=== PATIENT | female | born 2005 | race Caucasian/White ===

== ENCOUNTER 2025-02-27 01:42 | Observation (INO) ==
[2025-02-27] MEDS: SODIUM CHLORIDE 0.9% 1,000 ML IV ONE (02:14)
--- NOTE | 2025-02-27 02:20 | Emergency Department Note ---
Impression & Plan Chest pain, Leukocytosis, Acute appendicitis, Nausea & vomiting, Myocarditis ED Provider Note HISTORY OF PRESENT ILLNESS: Patient is a 19-year-old female presenting with abdominal pain and chest pain. Patient reports that she has been having lower abdominal pain for the last 4 days. She reports that she went to urgent care 3 days ago and was given reflux medication. She states that she was instructed if her symptoms do not improve that she should present to the emergency department. Patient reports that this evening she was trying to eat a burger and became very nauseous and started vomiting. She reports she has had intermittent pain in her right lower abdomen over the last few days. She states that she has had poor oral intake over the last 3 days secondary to nausea and states that whenever she tries to eat or drink anything she vomits. Denies any measured fevers or chills at home. Denies any dysuria or hematuria. Denies any history of abdominal surgeries. She is on OCPs. She describes her chest pain as a burning sensation. Denies any associated shortness of breath. ROS: as above PHYSICAL EXAM: Constitutional: Patient appears in no acute distress. HENT: Head: Normocephalic and atraumatic. Eyes: EOMI, PERRL Mouth/Throat: Mucous membranes moist. Neck: Trachea midline. Neck supple. Cardiovascular: RRR, No murmurs, rubs or gallops. Intact distal pulses. Pulmonary/Chest: No respiratory distress. Breath sounds clear and equal bilaterally. No wheezes or rales. Abdominal: Abdomen soft, no rebound or guarding. RLQ TTP Musculoskeletal: No edema, tenderness or deformity noted. Skin: Warm and dry. No rash, erythema, pallor or cyanosis Psychiatric: Appropriate mood and affect for situation. Neurological: Alert and keenly responsive. CN II-XII grossly intact, moving all extremities equally and fully. MDM: - Vitals signs stable - History obtained via patient. History as above. - Chronic conditions affecting care: None - Differential diagnoses include, but are not limited to: Acute coronary syndrome; pulmonary embolism; dissection; tension pneumothorax; esophageal rupture; pneumonia; appendicitis; bowel obstruction - Order placed for continuous cardiac monitoring. At this time, monitor showed rate of 83 bpm with normal sinus rhythm, per my interpretation. - External medical records reviewed. - EKG image interpreted by myself showed normal sinus rhythm. Rate 81 bpm. QT 370. No acute ischemic changes. Noted to have an incomplete right bundle branch block. - Laboratory workup interpreted by myself showed leukocytosis (WBC 12.42) with neutrophil predominance; stable electrolytes; negative hCG; normal AST/ALT; normal lipase; elevated troponin (1298.1) - Patient was given 4 mg IV Zofran, 1 L normal saline and 1 g IV Tylenol on arrival to the ER. However, she is still complaining of chest pain and vomiting on reassessment. Given 20 mg IV Pepcid, 5 mg IV Compazine and 25 mg IV Benadryl. - Repeat troponin elevated and rising to 2086.8 - Viral respiratory panel negative. - CTA chest negative for PE - CT abdomen/pelvis with IV contrast showed a possible mild/early appendicitis noted as a small tubular blind-ending structure adjacent to the base of the cecum. Noted to have mild free fluid in the pelvis. - IV zosyn ordered - Discussed case with general surgeon on-call, Dr. Ko, at 5:19 AM. He states that surgery will follow along as a consult. - Given 324 mg aspirin. - Repeat EKG obtained at 5:21 AM was reviewed and interpreted by myself and showed normal sinus rhythm. Rate 65 bpm. QT 390. No acute ischemic changes. -Given patient's recent illness with nausea and vomiting over the last few days, do wonder if her troponin elevation and chest pain is a myocarditis versus pericarditis. - Discussion was had with case reviewer about patient's case and need for admission - Hospitalist consulted for admission - [facility]. I have personally spent 41 minutes of critical care time in the direct management of this patient. This includes bedside care, interpretation of diagnostic studies, and testing, discussion with consultants, patient, and family members, and other required patient management activities. This 41 minutes is in excess of all separately billable procedures. ASSESSMENT AND PLAN: Diagnosis: Chest pain; leukocytosis; acute appendicitis; nausea and vomiting; myocarditis Plan: admit Past Med/Surg History Problem List (Updated 02/27/25 @ 05:32 by Sonya Yusuf MD) Myocarditis (Acute) Nausea & vomiting (Acute) Acute appendicitis (Acute) Leukocytosis (Acute) Chest pain (Acute) Social History Smoking Status: Current every day smoker Tobacco Type: Cigarettes and E-cigarettes / Vaping Preferred Language: Japanese Feels Safe at Home: Yes Results & Data (ED) Vital Signs Vital Signs - 24 hr 02/27/25 01:44 02/27/25 01:52 02/27/25 02:15 Temperature 37.3 C Temperature Source Temporal Artery Scan Pulse Rate 99 H 80 Pulse Rate [Apical] Pulse Rhythm [Apical] Respiratory Rate 20 Respiratory Effort / Characteristics Non-Labored Spontaneous Respiratory Depth Normal Respiratory Pattern Blood Pressure 110/71 Blood Pressure [Right Arm] Blood Pressure Mean 84 Blood Pressure Mean [Right Arm] Blood Pressure Position [Right Arm] Pulse Oximetry 97 97 Oxygen Delivery Method Room Air Room Air Sepsis Recent Fever Within 48 Hours No Sepsis New/Unexplained Change in Mental Status N/A Sepsis Action Taken by Nursing No Action Required 02/27/25 03:12 02/27/25 04:00 02/27/25 04:53 Temperature 37.0 C Temperature Source Oral Pulse Rate Pulse Rate [Apical] 84 82 83 Pulse Rhythm [Apical] Regular Irregular Respiratory Rate 16 20 18 Respiratory Effort / Characteristics Non-Labored Spontaneous Non-Labored Spontaneous Non-Labored Spontaneous Respiratory Depth Normal Normal Normal Respiratory Pattern Regular Regular Regular Blood Pressure Blood Pressure [Right Arm] 122/85 114/94 137/74 Blood Pressure Mean Blood Pressure Mean [Right Arm] 97 100 95 Blood Pressure Position [Right Arm] Semi-fowlers Semi-fowlers Semi-fowlers Pulse Oximetry 97 98 98 Oxygen Delivery Method Room Air Room Air Room Air Sepsis Recent Fever Within 48 Hours Sepsis New/Unexplained Change in Mental Status Sepsis Action Taken by Nursing Laboratory Data 02/27/25 01:54 02/27/25 01:54 Lab Results 02/27/25 02/27/25 02/27/25 Range/Units 01:54 02:16 03:57 WBC 12.42 H (4.8-10.8) K/ul RBC 4.23 (4.20-5.40) M/uL Hgb 12.8 (12.0-16.0) g/dl Hct 37.1 (37.0-47.0) % MCV 87.7 (80.0-100.0) fL MCH 30.3 (25.0-34.0) pg MCHC 34.5 (32.0-36.0) g/dL RDW Std Deviation 40.0 (36.4-46.3) fL RDW Coeff of James 12.6 (11.5-14.5) % Plt Count 353 (130-400) K/uL MPV 10.3 (9.4-12.4) fL Immature Gran % (Auto) 0.2 % Neut % (Auto) 67.3 % Lymph % (Auto) 20.1 % [place] % (Auto) 11.4 % Eos % (Auto) 0.6 % Baso % (Auto) 0.4 % Neut # (Auto) 8.35 H (1.40-6.50) K/uL Lymph # (Auto) 2.50 (1.20-3.40) K/uL [place] # (Auto) 1.41 H (0.11-0.59) K/uL Eos # (Auto) 0.08 (0.00-0.50) K/uL Baso # (Auto) 0.05 (0.00-0.20) K/uL Immature Gran # (Auto) 0.03 (0.01-0.20) K/uL Sodium 136 (136-145) mmol/L Potassium 3.7 (3.5-5.1) mmol/L Chloride 100 (98-107) mmol/L Carbon Dioxide 26 (21-32) mmol/L Anion Gap 10 (3-11) BUN 6 (6-23) mg/dl Creatinine 0.69 (0.6-1.2) mg/dl Est Cr Clr Drug Dosing 107.9 ml/min eGFR 126.55 BUN/Creatinine Ratio 8.7 L (10-20) Glucose 97 (70-99(Fasting)) mg/dl Calcium 9.4 (8.6-10.3) mg/dl Total Bilirubin 0.3 (0.2-1.0) mg/dl AST 20 (13-39) U/L ALT 15 (7-52) U/L Alkaline Phosphatase 79 (34-104) U/L Troponin I High Sens 1298.1 H* 2086.8 H* D (0-14) pg/ml Total Protein 7.7 (6.0-8.3) gm/dl Albumin 4.0 (3.4-5.0) gm/dl Globulin 3.7 (2.5-4.0) gm/dl Albumin/Globulin Ratio 1.1 (0.9-2) Lipase 24 (11-82) U/L HCG, Qual Negative (Negative) Adenovirus (PCR) Not Detected (NotDetected) B. pertussis DNA (PCR) Not Detected (NotDetected) B.parapertussis DNA PCR Not Detected (NotDetected) C. pneumoniae DNA (PCR) Not Detected (NotDetected) Coronavirus OC43 (PCR) Not Detected (NotDetected) Coronavirus HKU1 (PCR) Not Detected (NotDetected) Coronavirus 229E (PCR) Not Detected (NotDetected) SARS-CoV-2 (PCR) Not Detected (NotDetected) Coronavirus NL63 (PCR) Not Detected (NotDetected) Human Metapneumovir PCR Not Detected (NotDetected) Influenza Type A (PCR) Not Detected (NotDetected) Influenza Type B (PCR) Not Detected (NotDetected) M. pneumoniae (PCR) Not Detected (NotDetected) Parainfluenza 1 (PCR) Not Detected (NotDetected) Parainfluenza 2 (PCR) Not Detected (NotDetected) Parainfluenza 3 (PCR) Not Detected (NotDetected) Parainfluenza 4 (PCR) Not Detected (NotDetected) RSV (PCR) Not Detected (NotDetected) Entero/Rhino (PCR) Not Detected (NotDetected) Administered Medications Discontinued Medications Aspirin (Aspirin Chew 324 Mg) 324 mg PO NOW STA Stop: 02/27/25 04:59 Last Admin: 02/27/25 05:23 Dose: 324 mg Documented By: GIBSON Diphenhydramine HCl (Diphenhydramine 50 Mg/Ml Vial) 25 mg IV NOW STA Stop: 02/27/25 04:38 Last Admin: 02/27/25 04:43 Dose: 25 mg Documented By: GIBSON Sodium Chloride (Nss) 1,000 mls @ 999 mls/hr IV .Q1H1M ONE Stop: 02/27/25 02:54 Last Infusion: 02/27/25 03:15 Dose: Infused Documented By: Admin: 02/27/25 02:14 Dose: 999 mls/hr Documented By: GIBSON Acetaminophen (Ofirmev) 1,000 mg in 100 mls @ 400 mls/hr IV NOW STA Stop: 02/27/25 02:28 Last Infusion: 02/27/25 02:58 Dose: Infused Documented By: Admin: 02/27/25 02:43 Dose: 400 mls/hr Documented By: LORA Famotidine (Pepcid 20mg Iv Push) 20 mg in 5 mls @ 2.5 mls/min IV NOW STA Stop: 02/27/25 03:24 Last Admin: 02/27/25 03:29 Dose: 2.5 mls/min Documented By: GIBSON Prochlorperazine (Compazine) 1 mls @ 1 mls/min IV ONE ONE Stop: 02/27/25 04:38 Last Admin: 02/27/25 04:42 Dose: 1 mls/min Documented By: GIBSON Ioversol (Optiray 320 125ml) 125 ml IV ONCE ONE Stop: 02/27/25 04:02 Last Admin: 02/27/25 04:01 Dose: 118 ml Documented By: CHRISTOPHER Ondansetron HCl (Ondansetron Inj 2 Mg/Ml 2 Ml Vial) 4 mg IV NOW STA Stop: 02/27/25 02:15 Last Admin: 02/27/25 02:43 Dose: 4 mg Documented By: LORA Imaging Data Radiologist's Impression: Abdomen/Pelvis CT 02/27/25 02:14 EXAM: CT abd pelvis IV con only CLINICAL HISTORY: RLQ pain TECHNIQUE: Contiguous axial images were obtained from the level of the diaphragm to the pubic symphysis with intravenous contrast. Coronal and sagittal reconstructions were likewise performed and indicated to increase the sensitivity for detecting clinically relevant pathology. If IV contrast material had not been administered, the likelihood of detecting abnormalities relevant to the patient's condition would have been substantially decreased. CT scan was performed according to ALARA (as low as reasonably achievable). COMPARISON: None. FINDINGS: The visualized lung bases are clear. The liver is normal in size and attenuation. No focal liver lesions are seen. There is no intra or extrahepatic biliary ductal dilatation. Hepatic vasculature is patent. The gallbladder is present. The spleen, pancreas, and adrenal glands are unremarkable. The kidneys are normal in size and attenuation. There is no hydronephrosis or perinephric fat stranding. No renal calculi or renal masses are identified. The ureters are normal in caliber and no ureteral calculi are seen. The bladder is normal in contour. Pelvic viscera are unremarkable. No focal or diffuse bowel wall thickening or evidence of bowel obstruction is identified. Small tubular blind ended structure is noted adjacent to the base of cecum (appears appendix) with maximum external luminal diameter measures about 7 mm ( Image: 272/365)- could be mild appendicitis -post oral contrast evaluation suggested. Abdominal and pelvic vasculature is patent. No adenopathy are seen. Mild free fluid in the pelvis. No aggressive appearing osseous lesions are identified. IMPRESSION: Small tubular blind ended structure is noted adjacent to the base of cecum (appears appendix) with maximum external luminal diameter measures about 7 mm ( Image: 272/365)- could be mild / early changes of appendicitis -post positive oral contrast evaluation suggested if cliically indicated. Mild free fluid in the pelvis. Electronically signed by Naveen Tello 02-27-2025 05:08 AM Chest CTA 02/27/25 03:23 EXAM: CT angio chest PE protocol CLINICAL HISTORY: chest pain TECHNIQUE: Contiguous axial images were obtained from the neck base through the upper abdomen following intravenous administration of iodinated contrast material. Angiographic images were processed, 3D MIP images were acquired for interpretation. If IV contrast material had not been administered, the likelihood of detecting abnormalities relevant to the patient's condition would have been substantially decreased. Coronal and sagittal 3-D MIPs were likewise performed and indicated to increase the sensitivity of detectin diffuse clinically relevant pathology. CT scan was performed according to ALARA (as low as reasonably achievable). COMPARISON: None. FINDINGS: Adequate contrast bolus without evidence of pulmonary embolism. The central airways are patent. The lungs are clear. No pleural effusion. The heart, aorta, and pulmonary arteries are of normal size and configuration. There are no appreciable coronary artery and aortic atherosclerotic calcifications. No pericardial effusion is identified. The thyroid is unremarkable. No mediastinal, hilar, or axillary lymphadenopathy is noted. No suspicious lytic or sclerotic osseous lesions are identified. IMPRESSION: 1. No evidence of pulmonary embolism or pulmonary disease. Electronically signed by Naveen Tello 02-27-2025 04:59 AM Discharge Plan Visit Data Chief Complaint: Chest Pain Stated Complaint: CHEST PAIN ED Provider: Sonya Yusuf Discharge Problem: Chest pain, Leukocytosis, Acute appendicitis, Nausea & vomiting, Myocarditis Patient Disposition: Admitted As Inpatient Condition: Serious Forms Stand Alone Forms: [facility] Referrals Referrals: [facility] [Non-Staff] -
[2025-02-27 02:31] LABS: Hematocrit (blood only) 37.1 % (37.0-47.0); Hemoglobin 12.8 g/dl (12.0-16.0); Immature Granulocytes # (auto) 0.03 K/uL (0.01-0.20); Immature Granulocytes % (auto) 0.2 %; Mean Corpuscular Hemoglobin 30.3 pg (25.0-34.0); Mean Corpuscular Volume 87.7 fL (80.0-100.0); Platelet Count 353 K/uL (130-400); RDW Standard Deviation 40.0 fL (36.4-46.3); Red Blood Count 4.23 M/uL (4.20-5.40); White Blood Count 12.42 K/ul (4.8-10.8)
[2025-02-27] MEDS: ONDANSETRON INJ 2 MG/ML 2 ML VIAL IV STA (02:43)
[2025-02-27] MEDS: ACETAMINOPHEN 1,000 MG/100 ML VIAL IV STA (02:43)
[2025-02-27 02:45] LABS: Pregnancy Test, Serum Negative (Negative)
[2025-02-27 02:51] LABS: Alanine Aminotransferase 15.0 U/L (7-52); Albumin Globulin Ratio 1.1 (0.9-2); Albumin Level 4.0 gm/dl (3.4-5.0); Alkaline Phosphatase 79.0 U/L (34-104); Anion Gap 10.0 (3-11); Bilirubin,Total 0.3 mg/dl (0.2-1.0); Blood Urea Nitrogen 6.0 mg/dl (6-23); Calcium 9.4 mg/dl (8.6-10.3); Carbon Dioxide 26.0 mmol/L (21-32); Chloride 100.0 mmol/L (98-107); Creatinine Clr Calc Pharmacy 107.9 ml/min; Globulin 3.7 gm/dl (2.5-4.0); Glucose 97.0 mg/dl (70-99(Fasting)); Lipase 24.0 U/L (11-82); Potassium 3.7 mmol/L (3.5-5.1); Sodium 136.0 mmol/L (136-145); Total Protein 7.7 gm/dl (6.0-8.3)
[2025-02-27 03:11] LABS: Chlamydia pneumoniae PCR Not Detected (NotDetected); Coronavirus 229E PCR Not Detected (NotDetected); Coronavirus CoV-2 (COVID19)PCR Not Detected (NotDetected); Coronavirus HKU1 PCR Not Detected (NotDetected); Coronavirus NL63 PCR Not Detected (NotDetected); Coronavirus OC43PCR Not Detected (NotDetected); Human Metapneumovirus PCR Not Detected (NotDetected); Parainfluenza Virus 1 PCR Not Detected (NotDetected); Parainfluenza Virus 2 PCR Not Detected (NotDetected); Parainfluenza Virus 3 PCR Not Detected (NotDetected); Parainfluenza Virus 4 PCR Not Detected (NotDetected); Respiratory Syncytial VirusPCR Not Detected (NotDetected); Rhinovirus/Enterovirus PCR Not Detected (NotDetected)
[2025-02-27] MEDS: FAMOTIDINE 20MG IV PUSH 20 MG/5 ML SYR IV STA (03:29)
[2025-02-27] MEDS: OPTIRAY 320 125ml IV ONE (04:01)
[2025-02-27] MEDS: PROCHLORPERAZINE 1 ML IV ONE (04:42)
[2025-02-27] MEDS: diphenhydrAMINE 50 MG/ML VIAL IV STA (04:43)
--- NOTE | 2025-02-27 04:59 | CT Scan Report ---
EXAM: CT angio chest PE protocol CLINICAL HISTORY: chest pain TECHNIQUE: Contiguous axial images were obtained from the neck base through the upper abdomen following intravenous administration of iodinated contrast material. Angiographic images were processed, 3D MIP images were acquired for interpretation. If IV contrast material had not been administered, the likelihood of detecting abnormalities relevant to the patient's condition would have been substantially decreased. Coronal and sagittal 3-D MIPs were likewise performed and indicated to increase the sensitivity of detectin diffuse clinically relevant pathology. CT scan was performed according to ALARA (as low as reasonably achievable). COMPARISON: None. FINDINGS: Adequate contrast bolus without evidence of pulmonary embolism. The central airways are patent. The lungs are clear. No pleural effusion. The heart, aorta, and pulmonary arteries are of normal size and configuration. There are no appreciable coronary artery and aortic atherosclerotic calcifications. No pericardial effusion is identified. The thyroid is unremarkable. No mediastinal, hilar, or axillary lymphadenopathy is noted. No suspicious lytic or sclerotic osseous lesions are identified. IMPRESSION: 1. No evidence of pulmonary embolism or pulmonary disease. Electronically signed by Naveen Tello 02-27-2025 04:59 AM
--- NOTE | 2025-02-27 05:09 | CT Scan Report ---
EXAM: CT abd pelvis IV con only CLINICAL HISTORY: RLQ pain TECHNIQUE: Contiguous axial images were obtained from the level of the diaphragm to the pubic symphysis with intravenous contrast. Coronal and sagittal reconstructions were likewise performed and indicated to increase the sensitivity for detecting clinically relevant pathology. If IV contrast material had not been administered, the likelihood of detecting abnormalities relevant to the patient's condition would have been substantially decreased. CT scan was performed according to ALARA (as low as reasonably achievable). COMPARISON: None. FINDINGS: The visualized lung bases are clear. The liver is normal in size and attenuation. No focal liver lesions are seen. There is no intra or extrahepatic biliary ductal dilatation. Hepatic vasculature is patent. The gallbladder is present. The spleen, pancreas, and adrenal glands are unremarkable. The kidneys are normal in size and attenuation. There is no hydronephrosis or perinephric fat stranding. No renal calculi or renal masses are identified. The ureters are normal in caliber and no ureteral calculi are seen. The bladder is normal in contour. Pelvic viscera are unremarkable. No focal or diffuse bowel wall thickening or evidence of bowel obstruction is identified. Small tubular blind ended structure is noted adjacent to the base of cecum (appears appendix) with maximum external luminal diameter measures about 7 mm ( Image: 272/365)- could be mild appendicitis -post oral contrast evaluation suggested. Abdominal and pelvic vasculature is patent. No adenopathy are seen. Mild free fluid in the pelvis. No aggressive appearing osseous lesions are identified. IMPRESSION: Small tubular blind ended structure is noted adjacent to the base of cecum (appears appendix) with maximum external luminal diameter measures about 7 mm ( Image: 272/365)- could be mild / early changes of appendicitis -post positive oral contrast evaluation suggested if cliically indicated. Mild free fluid in the pelvis. Electronically signed by Naveen Tello 02-27-2025 05:08 AM
[2025-02-27] MEDS: ASPIRIN CHEW 324 MG PO STA (05:23)
--- NOTE | 2025-02-27 05:37 | History & Physical Report ---
Date of Service February 27, 2025 Assessment & Plan (1) Myopericarditis: (2) Nausea & vomiting: (3) Abdominal pain: Plan Patient is a 19-year-old [employer] student who presented due to diffuse abdominal pain, nausea, and vomiting x 3 days as well as sharp left-sided chest pain x 2 days. Diagnostic imaging revealed possible early appendicitis elevated troponin 1298.1 up trended to 2086.8. She is being admitted for further workup for myopericarditis and early appendicitis. #Myopericarditis troponin 1298.1 -> 2086.8. EKG with mild diffuse ST elevations. Bio fire and CTA negative. Questionable GI viral prodrome and fatigue for several weeks. WBC 12.42. Echocardiogram ordered Cardiology consulted Colchicine 0.6 mg p.o. twice daily started on admission Received aspirin 325 mg p.o. in the ED; continue with baby aspirin twice daily Trend troponin every 6 hours Ordered tick panel, parvovirus, coxsackie, CMV, Monospot test Trend CBC #abdominal pain/nausea and vomiting AP CT revealed possible mild/early appendicitis (consider post positive oral contrast study if clinically indicated). Mild leukocytosis with WBC 12.42, VSS, afebrile. Denies previous abdominal surgeries. LFTs WNL, hCG negative. N.p.o. General Surgery consulted Coverage with Zosyn in the ED, continue Tylenol 1G IV as needed Received 1L NSS bolus in the ED, continue fluid resuscitation with LR at 80 mL/hr Zofran as needed Trend CBC #nicotine use endorses vaping. Declines need for nicotine patch on admission. Smoking cessation VTE ppx: SCDs, low risk and possible surgical management Dispo: med/tele Admission and Anticipated Discharge Date Admission Date: 02/27/25 History of Present Illness Chief Complaint: chest pain Primary Care Provider: NO PCP Patient is a 19-year-old [employer] student who presented due to diffuse abdominal pain, nausea, and vomiting x 3 days as well as sharp left-sided chest pain x 2 days. Diagnostic imaging revealed possible early appendicitis elevated troponin 1298.1 up trended to 2086.8. She is being admitted for further workup for myopericarditis and early appendicitis. Patient seen at bedside with her friend present. She stated on Tuesday she developed sudden sharp diffuse abdominal pain that is intermittent and does get worse with meals. Episodes only last a few minutes. She also noted her abdomen was hard however is not better. She denies any diarrhea or constipation. She does endorse nausea and vomiting after meals, denies any hematemesis. She has also had intermittent heartburn with this which she has never had before. She denies any history of previous abdominal surgeries or GI diagnoses however stated her mom has significant GI history. Patient also stated on Tuesday she developed sharp left-sided chest pain that was intermittent and was greatly improved with medications in the ED. She denies any cardiac history. She den ies any sick contacts, fevers, chills, shortness of breath. She does endorse nicotine use with vaping however declines need for nicotine patch at this time. She does not frequently drink alcohol and denies any illicit drug use. Her only home medication consists of an oral contraceptive. She wishes to be full code. She also endorses fatigue for several weeks and history of tick bites. Allergies Allergy/AdvReac Type Severity Reaction Status Date / Time No Known Allergies Allergy Verified 02/27/25 05:39 Home Medications Medication Instructions Recorded Confirmed Type drospirenone 3 mg-ethinyl 1 tab PO DAILY 02/27/25 02/27/25 History estradiol 0.02 mg tablet Past Med/Surg History Problem List (Updated 02/27/25 @ 06:09 by Vanesa Sosa PA-C) Abdominal pain Myopericarditis Myocarditis (Acute) Nausea & vomiting (Acute) Acute appendicitis (Acute) Leukocytosis (Acute) Chest pain (Acute) Social History Smoking Status: Current every day smoker Tobacco Type: E-cigarettes / Vaping Second Hand Exposure: No; Do You Dip or Chew Tobacco: No; Tobacco Cessation Education Requested by Patient: No Hx Alcohol Use: No Hx Substance Use: No Preferred Language: Citizen Of [place] Environmental Monitoring Technician Required: No Beliefs That Will Affect Care: None Current Living Situation: Alone Other Information That Helps Us Care for You: No Feels Safe at Home: Yes Safety Concerns: Feels Safe At This Time Assistive Devices: None Review of Systems Review of Systems: see HPI Physical Exam Physical Exam: The patient is awake, alert and oriented 3, well developed and well nourished, normocephalic and atraumatic, in no acute distress. Non-toxic appearing. HEENT- EOMI, mucous membranes moist. Hearing grossly intact. Heart-normal S1 and S2. No murmurs, rubs or gallops. Lungs-clear bilaterally, no respiratory distress, no accessory muscle use. Abdomen-normal bowel sounds and soft. No ascites noted. Non-tender. Extremities- no clubbing, cyanosis, or edema. Rheumatologic-normal range of motion. Psychiatric-normal affect. Results & Data Results & Data Vital Signs (Past 12 Hours) Vital Signs Temp Pulse Pulse Resp BP BP Pulse Ox 02/27/25 05:30 73 18 107/68 97 02/27/25 04:53 37.0 C 83 18 137/74 98 02/27/25 04:00 82 20 114/94 98 02/27/25 03:12 84 16 122/85 97 02/27/25 02:15 97 02/27/25 01:52 80 02/27/25 01:44 37.3 C 99 H 20 110/71 97 O2 Del Method 02/27/25 05:30 Room Air 02/27/25 04:53 Room Air 02/27/25 04:00 Room Air 02/27/25 03:12 Room Air 02/27/25 02:15 Room Air 02/27/25 01:52 02/27/25 01:44 Room Air Code Status & VTE Plan Code Status full code VTE Prophylaxis Plan VTE Prophylaxis will be ordered: Yes Supervising Physician Co-Signing Physician Notes Attending addendum: I have physically seen this patient, have supervised the ANGI's activities, and agree with the H&P unless as otherwise noted. Assessment and Plan: The patient is a 19-year-old [employer] student who presented to the emergency department with diffuse abdominal pain, nausea and vomiting x 3 days, and sharp left-sided chest pain x [address] scan abdomen pelvis to emergency department showed a possible early appendicitis. Laboratory evaluation included a troponin of 1298.1, which increased to thousand 86.8. Patient is being admitted to [facility] [place] [facility] for evaluation of myopericarditis, and early appendicitis. General surgery has been consulted by the emergency department regarding the early appendicitis. Myopericarditis- The patient will be admitted to telemetry for serial cardiac enzymes, serial EKG's, cardiac rhythm monitoring and a 2-D echocardiogram with Dopplers. Initial troponin was 1298.1, with follow-up 2086.83 EKG with mild diffuse ST elevations Bio fire negative CTA PE protocol negative Patient reports feeling generally weak for several weeks prior to the more sig nificant symptoms Start colchicine 0.6 mg p.o. twice daily, first dose now Status post aspirin 325 mg from the ED, continue aspirin 81 mg p.o. twice daily starting in the a.m. Serial troponins as noted Ordered and pending LR tick panel, parvovirus, coxsackie B, CMV and Monospot Follow serial CBC with differential and BMP Consult cardiology Early/mild appendicitis- As noted on CT scan General surgery has been consulted by the ED N.p.o. Zosyn 4.5 g IV every 8 hours Acetaminophen 1 g IV every 8 hours as needed for mild pain or fever Zofran 4 mg IV every 6 hours as needed Status post 1 L normal saline bolus from the ED LR at 80 mL/h Follow serial CBC with differential and BMP Nicotine use/vaping- Smoking cessation counseling PG Care Time/CCT Total # of Minutes Spent Total Time Spent with Patient: Total time spent is greater than 50% in coordination of care (as documented) at patient's floor/unit and/or counseling patient: Coding Level of Care Code 73163 INT INP/OBS CARE 3/75MIN Diagnoses Myopericarditis I31.9 Nausea & vomiting R11.2 Abdominal pain R10.9
[2025-02-27] MEDS: PIPERACILLIN/TAZOBACTAM 4.5 GM/100 ML BAG IV ONE (05:39)
[2025-02-27] MEDS: COLCHICINE 0.6 MG TAB PO ONE (06:10)
[2025-02-27] MEDS: LACTATED RINGER'S 1,000 ML IV SCH (06:10)
--- NOTE | 2025-02-27 08:45 | Hospitalist Progress Note ---
Date of Service February 27, 2025 Assessment & Plan (1) Abdominal pain: (2) Myopericarditis: (3) Nausea & vomiting: (4) Leukocytosis: (5) Chest pain: (6) Acute appendicitis: Plan Patient is a 19-year-old [employer] student who presented due to diffuse abdominal pain, nausea, and vomiting x 3 days as well as sharp left-sided chest pain x 2 days. Diagnostic imaging revealed possible early appendicitis elevated troponin 1298.1 up trended to 2086.8. She is being admitted for further workup for myopericarditis and early appendicitis. #Myopericarditis troponin 1298.1 -> 2086.8 -> 908 -> 1044.2 EKG with mild diffuse ST elevations. - Bio fire and CTA negative. Questionable GI viral prodrome and fatigue for several weeks. WBC 12.42. Echocardiogram ordered: wnl Colchicine 0.6 mg p.o. twice daily started on admission Received aspirin 325 mg p.o. in the ED; continue with baby aspirin twice daily High sensitivity troponin QAM Ordered tick panel, parvovirus, coxsackie, CMV, Monospot test CBC/BMP QAM #abdominal pain/nausea and vomiting AP CT revealed possible mild/early appendicitis (consider post positive oral contrast study if clinically indicated). Mild leukocytosis with WBC 12.42, VSS, afebrile. Denies previous abdominal surgeries. LFTs WNL, hCG negative. NPO General Surgery consulted: conservative management unless pain, WBCs, or abdominal symptoms intensify; continue following Coverage with Zosyn in the ED, continue Tylenol 1G IV as needed Received 1L NSS bolus in the ED, continue fluid resuscitation with LR at 80 mL/hr Zofran/Compazine as needed Trend CBC VTE ppx: SCDs, low risk and possible surgical management Dispo: med/tele Admission and Anticipated Discharge Date Admission Date: 02/27/25 Supervising Physician Co-Signing Physician Notes I personally examined the patient and verified all da silva points of history and exam, discussed case, and agree with decision making with Dr Scherer Chest pain feeling better. Abdominal pain worse whenever I saw her, later with revisit with Dr. Scherer it was less. Vitals noted, in general she is awake and alert fatigued no distress. HEENT normocephalic atraumatic mucous membranes moist. Abdomen soft predominantly right lower abdominal pain whenever I see her although no guarding rebound or rigidity no obturator sign. Labs and diagnostics noted. Myocarditisappears to be improving. Echo reassuring. Continue colchicine and aspirin . Abdominal painmost likely viral enteritis from the same (presumably coxsackie) that is causing the myocarditisthat said, serial exams and vigilance to ensure that if this was evolving appendicitis it is caught quickly (from whenever Dr. Scherer saw her first in the morning to whenever we saw her together early in the afternoon it was a bit concerning given that the pain had migrated to right lower abdomenbut on a recheck a few hours later it was no longer so localized in discussion with Dr. Scherer). Continue Zosyn for now until the situation is more clear. Appreciate surgery input as well Subjective Clair Perez is still feeling unwell when assessed in the ED this morning. Patient reports a week history of abdominal pain, nausea, vomiting and on and off constipation. Patient also related being on her menstrual cycle currently and does sometimes get crampy lower abdominal pain associated with this. Patient reports that her sharp chest pain started Tuesday night and progressed until today with some radiation of pain into her left shoulder and neck/jaw. At time of evaluation patient reports that her pain has significantly improved but she still does have 5-6/10 abdominal pain on palpation worst at RUQ and RLQ and 3- 4/10 pain at rest. Patient does report pleuritic chest pain and worsened chest p ain while lying flat. Patient remains afebrile and hemodynamically stable. Physical Exam Physical Exam: General: patient resting comfortably, NAD, non-toxic in appearance, answers questions appropriately. Skin: warm, dry, intact HEENT: NC/AT, anicteric sclera, conjunctiva without injection, moist mucus membranes. Heart: +S1/S2, regular, no m/r/g Lungs: equal air entry bilaterally, no rales/rhonchi/wheezes Abd: +BS, soft, NT/ND Ext: warm, no clubbing/cyanosis or edema Neuro: nonfocal, speech intact, no facial droop, moving all extremities. Results & Data Results & Data Vital Signs (Past 12 Hours) Vital Signs Temp Pulse Pulse Resp BP BP Pulse Ox 02/27/25 08:00 36.7 C 56 L 18 96/55 L 98 02/27/25 06:00 65 18 124/83 97 02/27/25 05:47 59 L 02/27/25 05:30 73 18 107/68 97 02/27/25 04:53 37.0 C 83 18 137/74 98 02/27/25 04:00 82 20 114/94 98 02/27/25 03:12 84 16 122/85 97 02/27/25 02:15 97 02/27/25 01:52 80 02/27/25 01:44 37.3 C 99 H 20 110/71 97 O2 Del Method 02/27/25 08:00 Room Air 02/27/25 06:00 Room Air 02/27/25 05:47 02/27/25 05:30 Room Air 02/27/25 04:53 Room Air 02/27/25 04:00 Room Air 02/27/25 03:12 Room Air 02/27/25 02:15 Room Air 02/27/25 01:52 02/27/25 01:44 Room Air Resident Activity Tracking Resident Involvement: Resident Care Provided Care Provided: Adult Hospital Medicine
[2025-02-27 09:33] LABS: EBV IgM Antibody Negative; EBV IgM Quant 12.7 U/mL (< 36.0); EBV Nuclear Antigen IgG Ab Positive; EBV Nuclear Antigen IgG Quant > 600.0 U/mL (< 18.0)
[2025-02-27 09:34] LABS: EBV Early Antigen IgG Ab Negative (Negative); EBV Early Antigen IgG Quant 5.8 U/mL (< 9.0); EBV IgG Antibody Positive; EBV IgG Quant 612.0 U/mL (< 18.0)
--- NOTE | 2025-02-27 10:19 | Surgery Consultation ---
Date of Consultation February 27, 2025 Assessment & Plan (1) Myopericarditis: (2) Abdominal pain: (3) Nausea & vomiting: (4) Leukocytosis: (5) Chest pain: Plan 19 yo female who presented to ED with 3 day history of diffuse abdominal pain, nausea, vomiting, and left sided chest pain x 1 day in setting of fatigue in last week. Imaging suggesting possible early appendicitis however no stranding on ct scan and appendix measured at 7 mm, no appendicolith. Her troponin elevated and trended up to 2100. Admitted for myocarditis and possible early appendicitis. Discussed with patient and friend at bedside that I do not feel this is acute appendicitis . However would treat with conservative management while admitted and cardiology work-up. Recommend iV fluids, npo , IV antibiotics, pain management and antiemtics as needed. Continue medical management Repeat am labs. Discussed with Dr. Shore who agrees with above. History of Present Illness Reason for Consultation: possible early appendicitis Requesting Physician: Vanesa Sosa PA-C Attending Physician: Mitchell Liu MD History of Present Illness Rochelle is a 19 yo female [employer] student who presented to ED to diffuse abdominal pain, nausea, and vomiting x 3 days as well as sharp left-sided chest pain x 2 days. Patient seen at bedside with her friend present. She stated on Tuesday she developed sudden sharp diffuse abdominal pain that is intermittent and does get worse with meals. Episodes only last a few minutes. She also noted her abdomen was hard however is not better. She denies any diarrhea or constipation. She does endorse nausea and vomiting after meals, denies any hematemesis. She has not ate much since Tuesday and has been able to keep some liquids down. She denies any history of previous abdominal surgeries or GI diagnoses or any similar pain. Patient also stated on Tuesday she developed sharp left-sided chest pain. Diagnostic imaging revealed possible early appendicitis elevated troponin 1298.1 up trended to 2086.8. She is being admitted for further workup for myopericarditis and early appendicitis. She states pain is still central but lower. Improved to 5/10 severity instead of 10/10. Very tired and fatigued. Still slightly nauseous. Allergies Allergy/AdvReac Type Severity Reaction Status Date / Time No Known Allergies Allergy Verified 02/27/25 05:39 Home Medications Medication Instructions Recorded Confirmed Type drospirenone 3 mg-ethinyl 1 tab PO DAILY 02/27/25 02/27/25 History estradiol 0.02 mg tablet Patient History Social History Smoking Status: Current every day smoker Tobacco Type: Cigarettes and E-cigarettes / Vaping Preferred Language: Norwegian Feels Safe at Home: Yes Review of Systems Review of Systems: All systems reviewed & are unremarkable except as noted in HPI & below Physical Exam Constitutional: WD/WN, vitals as above cooperative and comfortable; no acute distress, not ill appearing, not in distress, not combative and not diapho retic Respiratory: normal respiratory effort, lungs clear to auscultation Cardiovascular: RRR, no murmur, no edema Gastrointestinal (Abdomen): Inspection/Auscultation: abdomen normal to inspection; abdomen not distended Percussion/Palpation: + abdomen tender (suprapubic and RLQ) and abdomen soft; no guarding, abdomen not rigid and abdomen not firm Skin: no rashes, warm and dry Psychiatric: Orientation: alert and oriented x 3 Results & Data Vital Signs (Past 12 Hours) Vital Signs Temp Pulse Pulse Pulse Resp BP BP 02/27/25 09:57 36.8 C 53 L 15 98/61 L 02/27/25 09:35 68 20 118/71 02/27/25 09:00 67 18 108/64 02/27/25 08:00 36.7 C 56 L 18 96/55 L 02/27/25 06:00 65 18 124/83 02/27/25 05:47 59 L 02/27/25 05:30 73 18 107/68 02/27/25 04:53 37.0 C 83 18 137/74 02/27/25 04:00 82 20 114/94 02/27/25 03:12 84 16 122/85 02/27/25 02:15 02/27/25 01:52 80 02/27/25 01:44 37.3 C 99 H 20 110/71 Pulse Ox O2 Del Method 02/27/25 09:57 98 Room Air 02/27/25 09:35 99 Room Air 02/27/25 09:00 99 Room Air 02/27/25 08:00 98 Room Air 02/27/25 06:00 97 Room Air 02/27/25 05:47 02/27/25 05:30 97 Room Air 02/27/25 04:53 98 Room Air 02/27/25 04:00 98 Room Air 02/27/25 03:12 97 Room Air 02/27/25 02:15 97 Room Air 02/27/25 01:52 02/27/25 01:44 97 Room Air Laboratory Results 02/27/25 02/27/25 02/27/25 Range/Units 06:27 03:57 02:16 WBC (4.8-10.8) K/ul RBC (4.20-5.40) M/uL Hgb (12.0-16.0) g/dl Hct (37.0-47.0) % MCV (80.0-100.0) fL MCH (25.0-34.0) pg MCHC (32.0-36.0) g/dL RDW Std Deviation (36.4-46.3) fL RDW Coeff of James (11.5-14.5) % Plt Count (130-400) K/uL MPV (9.4-12.4) fL Immature Gran % (Auto) % Neut % (Auto) % Lymph % (Auto) % Ross % (Auto) % Eos % (Auto) % Baso % (Auto) % Neut # (Auto) (1.40-6.50) K/uL Lymph # (Auto) (1.20-3.40) K/uL Ross # (Auto) (0.11-0.59) K/uL Eos # (Auto) (0.00-0.50) K/uL Baso # (Auto) (0.00-0.20) K/uL Immature Gran # (Auto) (0.01-0.20) K/uL Sodium (136-145) mmol/L Potassium (3.5-5.1) mmol/L Chloride (98-107) mmol/L Carbon Dioxide (21-32) mmol/L Anion Gap (3-11) BUN (6-23) mg/dl Creatinine (0.6-1.2) mg/dl Est Cr Clr Drug Dosing ml/min eGFR BUN/Creatinine Ratio (10-20) Glucose (70-99(Fasting)) mg/dl Calcium (8.6-10.3) mg/dl Total Bilirubin (0.2-1.0) mg/dl AST (13-39) U/L ALT (7-52) U/L Alkaline Phosphatase (34-104) U/L Troponin I High Sens 2086.8 H* D (0-14) pg/ml Total Protein (6.0-8.3) gm/dl Albumin (3.4-5.0) gm/dl Globulin (2.5-4.0) gm/dl Albumin/Globulin Ratio (0.9-2) Lipase (11-82) U/L HCG, Qual (Negative) Adenovirus (PCR) Not Detected (NotDetected) Anaplasma Smear See Comment Babesia Smear See Comment Babesia microti DNA PCR Pending B. pertussis DNA (PCR) Not Detected (NotDetected) B.parapertussis DNA PCR Not Detected (NotDetected) Lyme Disease Screen Negative (Negative) C. pneumoniae DNA (PCR) Not Detected (NotDetected) Coronavirus OC43 (PCR) Not Detected (NotDetected) Coronavirus HKU1 (PCR) Not Detected (NotDetected) Coronavirus 229E (PCR) Not Detected (NotDetected) SARS-CoV-2 (PCR) Not Detected (NotDetected) Coronavirus NL63 (PCR) Not Detected (NotDetected) Coxsackie Type A(2) Ab Pending Coxsackie Type A(4) Ab Pending Coxsackie Type A(7) Ab Pending Coxsackie Type A(9) Ab Pending Coxsackie Type A(10) Ab Pending Coxsackie Type A(16) Ab Pending CMV IgM Ab Pending CMV IgG Ab/TORCH Pending Ehrlichia DNA (PCR) Pending EBV Capsid Ag IgG Ab Positive EBV Caps Ag IgG Sig Str 612.0 (< 18.0) U/mL EBV Capsid Ag IgM Ab Negative EBV Caps Ag IgM Sig Str 12.7 (< 36.0) U/mL EBV Early Antigen IgG Negative (Negative) EBV EA Signal Strength 5.8 (< 9.0) U/mL EBV Nuclear Antigen Ab Positive EBV Nucl Ag IgG Sig Str > 600.0 (< 18.0) U/mL EBV Interpretation See Comment Monoscreen Negative (Negative) Human Metapneumovir PCR Not Detected (NotDetected) Influenza Type A (PCR) Not Detected (NotDetected) Influenza Type B (PCR) Not Detected (NotDetected) M. pneumoniae (PCR) Not Detected (NotDetected) Parainfluenza 1 (PCR) Not Detected (NotDetected) Parainfluenza 2 (PCR) Not Detected (NotDetected) Parainfluenza 3 (PCR) Not Detected (NotDetected) Parainfluenza 4 (PCR) Not Detected (NotDetected) Parvovirus IgG Ab Index Pending Parvovirus IgM Ab Index Pending RSV (PCR) Not Detected (NotDetected) Entero/Rhino (PCR) Not Detected (NotDetected) 02/27/25 Range/Units 01:54 WBC 12.42 H (4.8-10.8) K/ul RBC 4.23 (4.20-5.40) M/uL Hgb 12.8 (12.0-16.0) g/dl Hct 37.1 (37.0-47.0) % MCV 87.7 (80.0-100.0) fL MCH 30.3 (25.0-34.0) pg MCHC 34.5 (32.0-36.0) g/dL RDW Std Deviation 40.0 (36.4-46.3) fL RDW Coeff of James 12.6 (11.5-14.5) % Plt Count 353 (130-400) K/uL MPV 10.3 (9.4-12.4) fL Immature Gran % (Auto) 0.2 % Neut % (Auto) 67.3 % Lymph % (Auto) 20.1 % Ross % (Auto) 11.4 % Eos % (Auto) 0.6 % Baso % (Auto) 0.4 % Neut # (Auto) 8.35 H (1.40-6.50) K/uL Lymph # (Auto) 2.50 (1.20-3.40) K/uL Ross # (Auto) 1.41 H (0.11-0.59) K/uL Eos # (Auto) 0.08 (0.00-0.50) K/uL Baso # (Auto) 0.05 (0.00-0.20) K/uL Immature Gran # (Auto) 0.03 (0.01-0.20) K/uL Sodium 136 (136-145) mmol/L Potassium 3.7 (3.5-5.1) mmol/L Chloride 100 (98-107) mmol/L Carbon Dioxide 26 (21-32) mmol/L Anion Gap 10 (3-11) BUN 6 (6-23) mg/dl Creatinine 0.69 (0.6-1.2) mg/dl Est Cr Clr Drug Dosing 107.9 ml/min eGFR 126.55 BUN/Creatinine Ratio 8.7 L (10-20) Glucose 97 (70-99(Fasting)) mg/dl Calcium 9.4 (8.6-10.3) mg/dl Total Bilirubin 0.3 (0.2-1.0) mg/dl AST 20 (13-39) U/L ALT 15 (7-52) U/L Alkaline Phosphatase 79 (34-104) U/L Troponin I High Sens 1298.1 H* (0-14) pg/ml Total Protein 7.7 (6.0-8.3) gm/dl Albumin 4.0 (3.4-5.0) gm/dl Globulin 3.7 (2.5-4.0) gm/dl Albumin/Globulin Ratio 1.1 (0.9-2) Lipase 24 (11-82) U/L HCG, Qual Negative (Negative) Adenovirus (PCR) (NotDetected) Anaplasma Smear Babesia Smear Babesia microti DNA PCR B. pertussis DNA (PCR) (NotDetected) B.parapertussis DNA PCR (NotDetected) Lyme Disease Screen (Negative) C. pneumoniae DNA (PCR) (NotDetected) Coronavirus OC43 (PCR) (NotDetected) Coronavirus HKU1 (PCR) (NotDetected) Coronavirus 229E (PCR) (NotDetected) SARS-CoV-2 (PCR) (NotDetected) Coronavirus NL63 (PCR) (NotDetected) Coxsackie Type A(2) Ab Coxsackie Type A(4) Ab Coxsackie Type A(7) Ab Coxsackie Type A(9) Ab Coxsackie Type A(10) Ab Coxsackie Type A(16) Ab CMV IgM Ab CMV IgG Ab/TORCH Ehrlichia DNA (PCR) EBV Capsid Ag IgG Ab EBV Caps Ag IgG Sig Str (< 18.0) U/mL EBV Capsid Ag IgM Ab EBV Caps Ag IgM Sig Str (< 36.0) U/mL EBV Early Antigen IgG (Negative) EBV EA Signal Strength (< 9.0) U/mL EBV Nuclear Antigen Ab EBV Nucl Ag IgG Sig Str (< 18.0) U/mL EBV Interpretation Monoscreen (Negative) Human Metapneumovir PCR (NotDetected) Influenza Type A (PCR) (NotDetected) Influenza Type B (PCR) (NotDetected) M. pneumoniae (PCR) (NotDetected) Parainfluenza 1 (PCR) (NotDetected) Parainfluenza 2 (PCR) (NotDetected) Parainfluenza 3 (PCR) (NotDetected) Parainfluenza 4 (PCR) (NotDetected) Parvovirus IgG Ab Index Parvovirus IgM Ab Index RSV (PCR) (NotDetected) Entero/Rhino (PCR) (NotDetected) Diagnostic Findings EXAM: CT abd pelvis IV con only CLINICAL HISTORY: RLQ pain TECHNIQUE: Contiguous axial images were obtained from the level of the diaphragm to the pubic symphysis with intravenous contrast. Coronal and sagittal reconstructions were likewise performed and indicated to increase the sensitivity for detecting clinically relevant pathology. If IV contrast material had not been administered, the likelihood of detecting abnormalities relevant to the patient's condition would have been substantially decreased. CT scan was performed according to ALARA (as low as reasonably achievable). COMPARISON: None. FINDINGS: The visualized lung bases are clear. The liver is normal in size and attenuation. No focal liver lesions are seen. There is no intra or extrahepatic biliary ductal dilatation. Hepatic vasculature is patent. The gallbladder is present. The spleen, pancreas, and adrenal glands are unremarkable. The kidneys are normal in size and attenuation. There is no hydronephrosis or perinephric fat stranding. No renal calculi or renal masses are identified. The ureters are normal in caliber and no ureteral calculi are seen. The bladder is normal in contour. Pelvic viscera are unremarkable. No focal or diffuse bowel wall thickening or evidence of bowel obstruction is identified. Small tubular blind ended structure is noted adjacent to the base of cecum (appears appendix) with maximum external luminal diameter measures about 7 mm ( Image: 272/365)- could be mild appendicitis -post oral contrast evaluation suggested. Abdominal and pelvic vasculature is patent. No adenopathy are seen. Mild free fluid in the pelvis. No aggressive appearing osseous lesions are identified. IMPRESSION: Small tubular blind ended structure is noted adjacent to the base of cecum (appears appendix) with maximum external luminal diameter measures about 7 mm ( Image: 147/460)- could be mild / early changes of appendicitis -post positive oral contrast evaluation suggested if cliically indicated. Mild free fluid in the pelvis. Personally reviewed CT scan images and concur with above findings. There is no caitlin-appendiceal stranding
[2025-02-27] MEDS ORDERED: MELATONIN 3 MG TAB PO PRN (10:20)
[2025-02-27] MEDS ORDERED: DOCUSATE SODIUM 100 MG CAP PO PRN (10:20)
[2025-02-27] MEDS ORDERED: POLYETHYLENE (MIRALAX) 17 GM PACK PO PRN (10:20)
[2025-02-27] MEDS: PIPERACILLIN/TAZOBACTAM 4.5 GM/100 ML BAG IV SCH (10:58)
[2025-02-27] MEDS: COLCHICINE 0.6 MG TAB PO SCH (11:15)
[2025-02-27] MEDS: ONDANSETRON INJ 2 MG/ML 2 ML VIAL IV PRN (11:32)
--- NOTE | 2025-02-27 12:04 | Electrocardiogram Report ---
Test Reason : Blood Pressure : */* mmHG Vent. Rate : 65 BPM Atrial Rate : 65 BPM P-R Int : 146 ms QRS Dur : 100 ms QT Int : 390 ms P-R-T Axes : 60 69 56 degrees QTcB Int : 405 ms Sinus rhythm with marked sinus arrhythmia Otherwise normal ECG No previous ECGs available Confirmed by Missael Caceres ([id number]) on 02/27/2025 12:03:59 PM Referred By: REFERRED SELF Confirmed By: Missael Caceres
--- NOTE | 2025-02-27 15:30 | XCELERA ---
[id number]
[2025-02-27] MEDS: PROCHLORPERAZINE 5 MG in SYRINGE 4 ML IV PRN (18:34)
--- NOTE | 2025-02-27 19:05 | Billing Data ---
Date of Service February 27, 2025 Coding Level of Care Code 10894 SUB INP/OBS CARE MIN
[2025-02-27] MEDS: ASPIRIN 81 MG ECTAB PO SCH (20:22)
[2025-02-28] MEDS: HYDROmorphone INJ 0.5 MG/0.5 ML SYR IV STA ×2 (01:46→21:15)
[2025-02-28 06:20] LABS: Hematocrit (blood only) 32.1 % (37.0-47.0); Hemoglobin 10.6 g/dl (12.0-16.0); Immature Granulocytes # (auto) 0.03 K/uL (0.01-0.20); Immature Granulocytes % (auto) 0.4 %; Mean Corpuscular Hemoglobin 29.5 pg (25.0-34.0); Mean Corpuscular Volume 89.4 fL (80.0-100.0); Platelet Count 298 K/uL (130-400); RDW Standard Deviation 41.4 fL (36.4-46.3); Red Blood Count 3.59 M/uL (4.20-5.40); White Blood Count 8.21 K/ul (4.8-10.8)
[2025-02-28 06:51] LABS: Alanine Aminotransferase 15.0 U/L (7-52); Albumin Globulin Ratio 1.1 (0.9-2); Albumin Level 3.1 gm/dl (3.4-5.0); Alkaline Phosphatase 58.0 U/L (34-104); Anion Gap 9.0 (3-11); Bilirubin,Total 0.3 mg/dl (0.2-1.0); Blood Urea Nitrogen 6.0 mg/dl (6-23); Calcium 8.5 mg/dl (8.6-10.3); Carbon Dioxide 26.0 mmol/L (21-32); Chloride 105.0 mmol/L (98-107); Creatinine Clr Calc Pharmacy 111.1 ml/min; Globulin 2.7 gm/dl (2.5-4.0); Glucose 92.0 mg/dl (70-99(Fasting)); Magnesium 1.8 mg/dl (1.7-2.4); Potassium 4.0 mmol/L (3.5-5.1); Sodium 140.0 mmol/L (136-145); Total Protein 5.8 gm/dl (6.0-8.3)
--- NOTE | 2025-02-28 09:39 | Surgery Progress Note ---
Date of Service February 28, 2025 Assessment & Plan (1) Myopericarditis: (2) Abdominal pain: (3) Nausea & vomiting: (4) Leukocytosis: (5) Chest pain: Plan 19 yo female who presented to ED with 3 day history of diffuse abdominal pain, nausea, vomiting, and left sided chest pain x 1 day in setting of fatigue in last week. Imaging suggesting possible early appendicitis however no stranding on ct scan and appendix measured at 7 mm, no appendicolith. Her troponin elevated and trended up to 2100. Admitted for myocarditis and possible early appendicitis. 02/28/2025 avss no leukocytosis or left shift abdomen pain improved, no pain on examination in RLQ, negative Mcburney's. Discussed with patient that I do not feel that she has acute appendicitis. No surgical intervention recommended antiemetics as needed start clears continue medical management Discussed with Dr. Shore who agrees with above. Admission and Anticipated Discharge Date Admission Date: February 27, 2025 Subjective feeling better, abdominal pain is improved feeling more nauseous and "inflamed" in abdomen No vomiting today so far urinating small bowel movement yesterday heavy menses currently no fevers or chills chest pain is improved as well Physical Exam Constitutional: WD/WN, vitals as above cooperative and comfortable; no acute distress and not ill appearing Respiratory: normal respiratory effort, lungs clear to auscultation Cardiovascular: RRR, no murmur, no edema Gastrointestinal (Abdomen): Inspection/Auscultation: abdomen normal to inspection; abdomen not distended Percussion/Palpation: + abdomen tender (mild in the lower abdomen on deep palpation, negative Mcburney's point) and abdomen soft; no guarding, abdomen not rigid and abdomen not firm Skin: no rashes, warm and dry Psychiatric: Orientation: alert and oriented x 3 Results & Data Vital Signs (Past 12 Hours) Vital Signs Temp Pulse Pulse Resp BP Pulse Ox O2 Del Method 02/28/25 08:00 36.6 C 52 L 16 90/54 L 98 Room Air 02/28/25 02:48 36.8 C 61 16 92/54 L 97 Room Air 02/27/25 22:31 36.7 C 81 16 119/74 97 Room Air 02/27/25 21:55 58 L Laboratory Results 09/11/25 09/10/25 09/10/25 Range/Units 05:43 23:07 16:14 WBC 8.21 (4.8-10.8) K/ul RBC 3.59 L (4.20-5.40) M/uL Hgb 10.6 L (12.0-16.0) g/dl Hct 32.1 L (37.0-47.0) % MCV 89.4 (80.0-100.0) fL MCH 29.5 (25.0-34.0) pg MCHC 33.0 (32.0-36.0) g/dL RDW Std Deviation 41.4 (36.4-46.3) fL RDW Coeff of James 12.6 (11.5-14.5) % Plt Count 298 (130-400) K/uL MPV 10.7 (9.4-12.4) fL Immature Gran % (Auto) 0.4 % Neut % (Auto) 63.1 % Lymph % (Auto) 22.7 % Gem % (Auto) 12.5 % Eos % (Auto) 0.9 % Baso % (Auto) 0.4 % Neut # (Auto) 5.19 (1.40-6.50) K/uL Lymph # (Auto) 1.86 (1.20-3.40) K/uL Gem # (Auto) 1.03 H (0.11-0.59) K/uL Eos # (Auto) 0.07 (0.00-0.50) K/uL Baso # (Auto) 0.03 (0.00-0.20) K/uL Immature Gran # (Auto) 0.03 (0.01-0.20) K/uL Sodium 140 (136-145) mmol/L Potassium 4.0 (3.5-5.1) mmol/L Chloride 105 (98-107) mmol/L Carbon Dioxide 26 (21-32) mmol/L Anion Gap 9 (3-11) BUN 6 (6-23) mg/dl Creatinine 0.67 (0.6-1.2) mg/dl Est Cr Clr Drug Dosing 111.1 ml/min eGFR 127.45 BUN/Creatinine Ratio 9.0 L (10-20) Glucose 92 (70-99(Fasting)) mg/dl Calcium 8.5 L (8.6-10.3) mg/dl Magnesium 1.8 (1.7-2.4) mg/dl Total Bilirubin 0.3 (0.2-1.0) mg/dl AST 17 (13-39) U/L ALT 15 (7-52) U/L Alkaline Phosphatase 58 (34-104) U/L Troponin I High Sens 496.7 H* D 679.5 H* D 1044.2 H* (0-14) pg/ml Total Protein 5.8 L D (6.0-8.3) gm/dl Albumin 3.1 L (3.4-5.0) gm/dl Globulin 2.7 (2.5-4.0) gm/dl Albumin/Globulin Ratio 1.1 (0.9-2) Lyme Disease Screen (Negative) 02/27/25 02/27/25 Range/Units 11:03 06:27 WBC (4.8-10.8) K/ul RBC (4.20-5.40) M/uL Hgb (12.0-16.0) g/dl Hct (37.0-47.0) % MCV (80.0-100.0) fL MCH (25.0-34.0) pg MCHC (32.0-36.0) g/dL RDW Std Deviation (36.4-46.3) fL RDW Coeff of James (11.5-14.5) % Plt Count (130-400) K/uL MPV (9.4-12.4) fL Immature Gran % (Auto) % Neut % (Auto) % Lymph % (Auto) % Gem % (Auto) % Eos % (Auto) % Baso % (Auto) % Neut # (Auto) (1.40-6.50) K/uL Lymph # (Auto) (1.20-3.40) K/uL Gem # (Auto) (0.11-0.59) K/uL Eos # (Auto) (0.00-0.50) K/uL Baso # (Auto) (0.00-0.20) K/uL Immature Gran # (Auto) (0.01-0.20) K/uL Sodium (136-145) mmol/L Potassium (3.5-5.1) mmol/L Chloride (98-107) mmol/L Carbon Dioxide (21-32) mmol/L Anion Gap (3-11) BUN (6-23) mg/dl Creatinine (0.6-1.2) mg/dl Est Cr Clr Drug Dosing ml/min eGFR BUN/Creatinine Ratio (10-20) Glucose (70-99(Fasting)) mg/dl Calcium (8.6-10.3) mg/dl Magnesium (1.7-2.4) mg/dl Total Bilirubin (0.2-1.0) mg/dl AST (13-39) U/L ALT (7-52) U/L Alkaline Phosphatase (34-104) U/L Troponin I High Sens 908.1 H* D (0-14) pg/ml Total Protein (6.0-8.3) gm/dl Albumin (3.4-5.0) gm/dl Globulin (2.5-4.0) gm/dl Albumin/Globulin Ratio (0.9-2) Lyme Disease Screen Negative (Negative)
[2025-02-28] MEDS: LACTATED RINGER'S 1,000 ML IV SCH ×2 (09:43→16:32)
--- NOTE | 2025-02-28 13:03 | Hospitalist Progress Note ---
Date of Service February 28, 2025 Assessment & Plan (1) Abdominal pain: (2) Myopericarditis: (3) Nausea & vomiting: (4) Leukocytosis: (5) Chest pain: (6) Acute appendicitis: Plan Patient is a 19-year-old [employer] student who presented due to diffuse abdominal pain, nausea, and vomiting x 3 days as well as sharp left-sided chest pain x 2 days. Diagnostic imaging revealed possible early appendicitis elevated troponin 1298.1 up trended to 2086.8. She is being admitted for further workup for myopericarditis and early appendicitis. #Myopericarditis troponin 1298.1 -> 2086.8 -> 908 -> 1044.2--> 679--> 476: peaked and resolved - Bio fire and CTA negative. Questionable GI viral prodrome and fatigue for several weeks. Leukocytosis resolved Echocardiogram ordered: wnl Colchicine 0.6 mg p.o. twice daily started on admission Received aspirin 325 mg p.o. in the ED; continue with baby aspirin twice daily High sensitivity troponin QAM Ordered tick panel, parvovirus, coxsackie, CMV, Monospot test CBC/BMP QAM - Continue colchicine 0.6mg daily for approximately 3 months after d/c with 6 weeks of exercise restriction to prevent VT #abdominal pain/nausea and vomiting AP CT revealed possible mild/early appendicitis (consider post positive oral contrast study if clinically indicated). Mild leukocytosis resolved, VSS, afebrile. Denies previous abdominal surgeries. LFTs WNL, hCG negative. Persistent N/V while attempting to ADAT General Surgery consulted: conservative management unless pain, WBCs, or abdominal symptoms intensify; continue following Coverage with Zosyn in the ED, continue Tylenol 1G IV as needed Continue 1 L LR 90 mL/hr MIVF - Protonix 40mg IV QAM, Pepcid 20mg IV BID started Carafate/Zofran/Compazine use prior to clear liquids diet Trend CBC VTE ppx: SCDs, low risk and possible surgical management Dispo: med/tele Admission and Anticipated Discharge Date Admission Date: February 27, 2025 Supervising Physician Co-Signing Physician Notes I personally examined the patient and verified all da silva points of history and exam, discussed case, and agree with decision making with Dr Scherer Overall feeling better. Just having trouble with nausea after eating. Abdominal pain much better. Chest pain gone. Vitals noted, in general she is awake and alert pleasant no distress. HEENT normocephalic atraumatic mucous membranes moist. Breathing unlabored no accessory muscle use good effort. Abdomen is soft maybe mild epigastric tenderness no guarding rebound or rigidity. Myocarditisappears to be improving. Echo reassuring. Continue colchicine , Hold off on exercise for about 6 weeks. This appears to be resolving Abdominal painmost likely viral enteritis from the same (presumably coxsackie) that is causing the myocarditis pain improving, still with nausea. Symptomatic control and advance diet. Hopefully home soon. Subjective Patient's chest pain has resolved. Reports that her diffuse abdominal tenderness has decreased significantly. Patient's major acute concern is nausea and vomiting when attempting to advance diet. Patient is amenable to continue trying to tolerate diet while on fluids, anti-emetics, and Carafate. Patient is afebrile and hemodynamically stable. Physical Exam Physical Exam: General: patient resting comfortably, NAD, non-toxic in appearance, answers questions appropriately. Skin: warm, dry, intact HEENT: NC/AT, anicteric sclera, conjunctiva without injection, moist mucus membranes. Heart: +S1/S2, regular, no m/r/g Lungs: equal air entry bilaterally, no rales/rhonchi/wheezes Abd: +BS, soft, ND, Mild diffuse abdominal tenderness with majority of pain in epigastric region Ext: warm, no clubbing/cyanosis or edema Neuro: nonfocal, speech intact, no facial droop, moving all extremities. Results & Data Results & Data Vital Signs (Past 12 Hours) Vital Signs Temp Pulse Resp BP Pulse Ox O2 Del Method 02/28/25 12:52 36.9 C 56 L 101/63 98 Room Air 02/28/25 10:27 57 L 134/87 02/28/25 08:00 36.6 C 52 L 16 90/54 L 98 Room Air 02/28/25 02:48 36.8 C 61 16 92/54 L 97 Room Air Resident Activity Tracking Resident Involvement: Resident Care Provided Care Provided: Adult [facility]
[2025-02-28] MEDS: FAMOTIDINE 20MG IV PUSH 20 MG/5 ML SYR IV SCH (13:47)
[2025-02-28] MEDS: PANTOprazole 40 MG/10 ML SYR IV SCH (13:47)
--- NOTE | 2025-02-28 16:25 | Billing Data ---
Date of Service February 28, 2025 Coding Level of Care Code 42616 SUB INP/OBS CARE MIN
[2025-02-28] MEDS: SUCRALFATE 1 GM/10 ML UDC PO STA ×2 (16:31→19:11)
[2025-02-28] MEDS: ONDANSETRON INJ 2 MG/ML 2 ML VIAL IV PRN (17:27)
[2025-02-28] MEDS: PROCHLORPERAZINE 5 MG in SYRINGE 4 ML IV PRN (17:51)
[2025-02-28] MEDS ORDERED: PROCHLORPERAZINE 10 MG in SYRINGE 4 ML IV PRN (17:52)
[2025-02-28] MEDS: ACETAMINOPHEN 1,000 MG/100 ML VIAL IV PRN (18:26)
[2025-03-01 07:21] LABS: Hematocrit (blood only) 31.6 % (37.0-47.0); Hemoglobin 10.9 g/dl (12.0-16.0); Immature Granulocytes # (auto) 0.02 K/uL (0.01-0.20); Immature Granulocytes % (auto) 0.3 %; Mean Corpuscular Hemoglobin 30.6 pg (25.0-34.0); Mean Corpuscular Volume 88.8 fL (80.0-100.0); Platelet Count 316 K/uL (130-400); RDW Standard Deviation 40.1 fL (36.4-46.3); Red Blood Count 3.56 M/uL (4.20-5.40); White Blood Count 5.86 K/ul (4.8-10.8)
[2025-03-01 07:38] LABS: Anion Gap 8.0 (3-11); Blood Urea Nitrogen 4.0 mg/dl (6-23); Calcium 8.4 mg/dl (8.6-10.3); Carbon Dioxide 26.0 mmol/L (21-32); Chloride 104.0 mmol/L (98-107); Creatinine Clr Calc Pharmacy 112.8 ml/min; Glucose 82.0 mg/dl (70-99(Fasting)); Potassium 3.7 mmol/L (3.5-5.1); Sodium 138.0 mmol/L (136-145)
[2025-03-01 07:43] VITALS: RESP 18; O2SAT 98
[2025-03-01] MEDS: COLCHICINE 0.6 MG TAB PO SCH (08:37)
[2025-03-01] MEDS: SUCRALFATE 1 GM/10 ML UDC PO SCH (08:37)
[2025-03-01] MEDS: LACTATED RINGER'S 1,000 ML IV SCH (08:38)
--- NOTE | 2025-03-01 09:09 | Surgery Progress Note ---
Date of Service March 01, 2025 Assessment & Plan (1) Myopericarditis: (2) Abdominal pain: (3) Nausea & vomiting: (4) Leukocytosis: (5) Chest pain: Plan 19 yo female who presented to ED with 3 day history of diffuse abdominal pain, nausea, vomiting, and left sided chest pain x 1 day in setting of fatigue in last week. Imaging suggesting possible early appendicitis however no stranding on ct scan and appendix measured at 7 mm, no appendicolith. Her troponin elevated and trended up to 2100. Admitted for myocarditis and possible early appendicitis. 03/01/2025 avss no leukocytosis or left shift benign abdominal examination regular diet okay for discharge from surgical standpoint. Could consider 5 days of oral Augmentin on discharge our services signing off, call with questions/concerns Discussed with Dr. Shore who agrees with above. Admission and Anticipated Discharge Date Admission Date: February 27, 2025 Subjective feeling better no abdominal pain hungry wants more food and wants to go home denies chest pain or shortness of breath no n,v urinating without difficulty some diarrhea Physical Exam Constitutional: WD/WN, vitals as above cooperative and comfortable; no acute distress and not ill appearing Respiratory: normal respiratory effort; no respiratory distress and no labored breathing Gastrointestinal (Abdomen): Inspection/Auscultation: abdomen normal to inspection; abdomen not distended Percussion/Palpation: abdomen soft; abdomen nontender, no guarding, abdomen not rigid and abdomen not firm Skin: no rashes, warm and dry Psychiatric: Orientation: alert and oriented x 3 Results & Data Vital Signs (Past 12 Hours) Vital Signs Temp Pulse Pulse Resp BP Pulse Ox O2 Del Method 03/01/25 07:42 36.5 C 55 L 18 118/69 98 Room Air 03/01/25 05:50 46 L 03/01/25 03:06 36.9 C 44 L 16 94/61 L 97 Room Air 02/28/25 22:34 36.6 C 56 L 16 112/68 96 Room Air 02/28/25 22:09 53 L Laboratory Results 03/01/25 Range/Units 06:17 WBC 5.86 (4.8-10.8) K/ul RBC 3.56 L (4.20-5.40) M/uL Hgb 10.9 L (12.0-16.0) g/dl Hct 31.6 L (37.0-47.0) % MCV 88.8 (80.0-100.0) fL MCH 30.6 (25.0-34.0) pg MCHC 34.5 (32.0-36.0) g/dL RDW Std Deviation 40.1 (36.4-46.3) fL RDW Coeff of James 12.2 (11.5-14.5) % Plt Count 316 (130-400) K/uL MPV 10.8 (9.4-12.4) fL Immature Gran % (Auto) 0.3 % Neut % (Auto) 45.3 % Lymph % (Auto) 38.9 % [place] % (Auto) 12.6 % Eos % (Auto) 2.2 % Baso % (Auto) 0.7 % Neut # (Auto) 2.65 (1.40-6.50) K/uL Lymph # (Auto) 2.28 (1.20-3.40) K/uL [place] # (Auto) 0.74 H (0.11-0.59) K/uL Eos # (Auto) 0.13 (0.00-0.50) K/uL Baso # (Auto) 0.04 (0.00-0.20) K/uL Immature Gran # (Auto) 0.02 (0.01-0.20) K/uL Sodium 138 (136-145) mmol/L Potassium 3.7 (3.5-5.1) mmol/L Chloride 104 (98-107) mmol/L Carbon Dioxide 26 (21-32) mmol/L Anion Gap 8 (3-11) BUN 4 L (6-23) mg/dl Creatinine 0.68 (0.6-1.2) mg/dl Est Cr Clr Drug Dosing 112.8 ml/min eGFR 126.99 BUN/Creatinine Ratio 5.9 L (10-20) Glucose 82 (70-99(Fasting)) mg/dl Calcium 8.4 L (8.6-10.3) mg/dl Troponin I High Sens 320.7 H* D (0-14) pg/ml
--- NOTE | 2025-03-01 10:49 | Discharge Summary ---
Date of Service March 01, 2025 Admission HPI Per Admitting Provider Patient is a 19-year-old [employer] student who presented due to diffuse abdominal pain, nausea, and vomiting x 3 days as well as sharp left-sided chest pain x 2 days. Diagnostic imaging revealed possible early appendicitis elevated troponin 1298.1 up trended to 2086.8. She is being admitted for further workup for myopericarditis and early appendicitis. Patient seen at bedside with her friend present. She stated on Tuesday she developed sudden sharp diffuse abdominal pain that is intermittent and does get worse with meals. Episodes only last a few minutes. She also noted her abdomen was hard however is not better. She denies any diarrhea or constipation. She does endorse nausea and vomiting after meals, denies any hematemesis. She has also had intermittent heartburn with this which she has never had before. She denies any history of previous abdominal surgeries or GI diagnoses however stated her mom has significant GI history. Patient also stated on Tuesday she developed sharp left-sided chest pain that was intermittent and was greatly improved with medications in the ED. She denies any cardiac history. She denies any sick contacts, fevers, chills, shortness of breath. She does endorse nicotine use with vaping however declines need for nicotine patch at this time. She does not frequently drink alcohol and denies any illicit drug use. Her only home medication consists of an oral contraceptive. She wishes to be full code. She also endorses fatigue for several weeks and history of tick bites. Admission Exam Per Admitting Provider The patient is awake, alert and oriented 3, well developed and well nourished, normocephalic and atraumatic, in no acute distress. Non-toxic appearing. HEENT- EOMI, mucous membranes moist. Hearing grossly intact. Heart-normal S1 and S2. No murmurs, rubs or gallops. Lungs-clear bilaterally, no respiratory distress, no accessory muscle use. Abdomen-normal bowel sounds and soft. No ascites noted. Non-tender. Extremities- no clubbing, cyanosis, or edema. Rheumatologic-normal range of motion. Psychiatric-normal affect. Principal Diagnosis Myopericarditis, Viral gastritis Discharge Exam General: patient resting comfortably, NAD, non-toxic in appearance, answers questions appropriately. Skin: warm, dry, intact HEENT: NC/AT, anicteric sclera, conjunctiva without injection, moist mucus membranes. Heart: +S1/S2, regular, no m/r/g Lungs: equal air entry bilaterally, no rales/rhonchi/wheezes Abd: +BS, soft, ND, Mild diffuse abdominal tenderness with majority of pain in epigastric region Ext: warm, no clubbing/cyanosis or edema Neuro: nonfocal, speech intact, no facial droop, moving all extremities. Discharge Data Allergies Allergy/AdvReac Type Severity Reaction Status Date / Time No Known Allergies Allergy Verified 02/27/25 05:39 Consultations 02/27/25 05:05 ED Decision to Admit Stat 02/27/25 05:37 Consult General Surgery Routine Ordered Studies 02/27/25 02:14 CT Abd and Pelvis [CT abd pelvis IV con only] Stat 02/27/25 03:23 CT angio chest PE protocol Stat Hospital Course (1) Abdominal pain: (2) Myopericarditis: (3) Nausea & vomiting: (4) Leukocytosis: (5) Chest pain: (6) Acute appendicitis: Plan Patient is a 19-year-old [employer] student who presented due to diffuse abdominal pain, nausea, and vomiting x 3 days as well as sharp left-sided chest pain x 2 days. Diagnostic imaging revealed possible early appendicitis elevated troponin 1298.1 up trended to 2086.8. She is being admitted for further workup for myopericarditis and early appendicitis. #Myopericarditis troponin 1298.1 -> 2086.8 -> 908 -> 1044.2--> 679-> 476-> 320: peaked and resolved - Bio fire and CTA negative. Questionable GI viral prodrome and fatigue for several weeks. Leukocytosis resolved Echocardiogram ordered: wnl Colchicine 0.6 mg p.o. twice daily started on admission, will proceed with once daily on d/c Received aspirin 325 mg p.o. in the ED; may continue with baby aspirin once daily High sensitivity troponin QAM Ordered tick panel, parvovirus, coxsackie, CMV, Monospot test CBC/BMP QAM - Continue colchicine 0.6mg daily for approximately 3 months after d/c with 6 weeks of exercise restriction to prevent VT, follow up in clinic with me in 2 weeks #abdominal pain/nausea and vomiting AP CT revealed possible mild/early appendicitis (consider post positive oral contrast study if clinically indicated). Mild leukocytosis resolved, VSS, afebrile. Denies previous abdominal surgeries. LFTs WNL, hCG negative. Persistent N/V while attempting to ADAT General Surgery consulted: conservative management unless pain, WBCs, or abdominal symptoms intensify; continue following Coverage with Zosyn in the ED, continue Tylenol 1G IV as needed Continue 1 L LR 90 mL/hr MIVF - Protonix 40mg IV QAM, Pepcid 20mg IV BID started Carafate/Zofran/Compazine use prior to clear liquids diet - Much improved, as needed anti-emetics and sucralfate on d/c VTE ppx: SCDs, low risk and possible surgical management Dispo: med/tele Total Time Total Time Spent Total Time Spent (In Minutes): See attending attestation Discharge Plan Discharge Items Patient Disposition: Home - Self-Care Reason For Visit: MYOPERICARDTIS, QUESTIONABLE APPENDICITIS Discharge Diagnosis: Myopericarditis, questionable appendicitis Condition on Discharge: Serious Activity: Per Instructions section Non-emergency contact: Primary Care Provider Call non-emergency contact if: your symptoms worsen and your pain is not controlled Follow-up/Referrals: PCP,NO [Primary Care Provider] - (PLEASE FOLLOW UP IN 7-10 DAYS WITH [facility].) Diet: Regular Addtl Attending Provider Instructions: You were admitted to the hospital for a condition called myopericarditis, concerns for acute appendicitis, and persistent nausea/vomiting. You were treated with IV fluids, antibiotics, and anti-emetics and surgical consultation to discuss appendicitis. Your appendicitis did look potentially inflamed and mildly larger than normal on CT imaging, but it did not show the typical fat stranding that is seen with an acute inflamed appendix. However, you were placed on antibiotics in the ED that were continued and your right lower quadrant pain and your white blood cell counts decreased through your stay. Typically your white blood cells increase with infection and it is possible that your viral GI infection is the reason for this, but with the initial imaging showing a larger appendix, higher white blood cell count, and right lower quadrant pain all improving while on antibiotics, I will order you a short course of antibiotics to take while outside of the hospital. This course will be Augmentin 875mg to be taken twice daily and it wi ll be in liquid form so it is easy on your stomach. This should be continued twice daily for the next 2 days for a total of 4 doses. For your myopericarditis you were treated with aspirin in the ED and colchicine to prevent future occurrences of myocarditis in the next 3 months. It is important to take colchicine 0.6mg daily for the next 3 months as studies have shown that there is a higher chance to get a reoccurrence of myocarditis in this time frame. You can imagine this medication being used to cool off your immune system that is angry and attacking your viral infection but we want to cool it down so it doesn't go after your heart again. Additionally please restrict exercise for the next 6 weeks or so. You may continue going to school and doing everything you normally do, but please be careful with more strenuous activities that will push your heart rate past 100. For your GI viral infection, continue eating as you are able to tolerate, and it is very reassuring that you were able to tolerate solid food with lunch today. I will prescribe some anti-emetic medication and sucralfate to help with stomach upset, but I do think we have passed the spot we were in for the past few days with the intense nausea and vomiting. Summary: Augmentin 400mg-57mg 5mL, take 10mL once in the morning and once at night for the next 2 days. Colchicine 0.6mg daily for the next 3 months. Please avoid strenuous exercise for the next 6 weeks Compazine/sucralfate as needed for nausea and vomiting These medications have been sent to [facility] Follow-up appointments: You are scheduled with me, Dr. Christofer Scherer in the clinic across the street from [facility] on March 21 at 9:20 AM. Please plan to show up at 9:05AM and you will be called in a few days to remind you when this appt is and where to show up. CONTACT YOUR PRIMARY CARE PROVIDER if you experience any of the following: Difficulty following your treatment plan, or difficulty taking medications CALL 911 OR GO TO THE EMERGENCY DEPARTMENT if you experience any of the following: Sudden, severe abdominal pain or nausea/vomiting Severe chest pain, or chest pain that radiates (moves) to your jaw or arm Sudden, severe shortness of breath or difficulty breathing Thank you for allowing us to participate in your care. Pending Studies at Discharge: No Stand-Alone Forms: My [employer], Smoking Cessation Medications and DC Order Prescriptions: New colchicine 0.6 mg capsule 0.6 mg PO DAILY Qty: 90 0RF amoxicillin-pot clavulanate 400-57 mg/5 mL suspension for reconstitution 10 ml PO BID Qty: 50 0RF prochlorperazine maleate [Compazine] 10 mg tablet 10 mg PO BID PRN (Reason: anxiety) Qty: 14 0RF sucralfate 100 mg/mL suspension 1 g PO ACHS Qty: 200 0RF Continued drospirenone-ethinyl estradiol 3-0.02 mg Tablet 1 tab PO DAILY Discharge Orders: Discharge Order (Routine); Ordered 03/01/25 Ordered By: Christofer Orta/Other Patient Handouts: Abdominal Pain Admission Data Admit Date/Time: 02/27/25 05:48 Attending Provider: Davian King Admit Provider: Mitchell Liu Primary Care Provider: PCP,NO Other Providers: Mitchell Liu; Raman Ko Other Interventions: Discharge Summary Assessment (RN) Last Done: 03/01/25 13:37 Supervising Physician Co-Signing Physician Notes I personally examined the patient and verified all da silva points of history and exam, discussed case, and agree with decision making with Dr Scherer Feeling better overall. P.o. intake not perfect but definitely feels like she is doing well enough to do okay at home. Rediscussed diagnoses, working diagnoses, and plan. She expresses good understanding. Family presentupdated them as well. Answered all questions to the best my ability and to patient and family satisfaction. Vitals noted, in general she is awake and alert pleasant no distress. HEENT normocephalic atraumatic mucous membranes moist. Breathing unlabored no accessory muscle use good effort. Skin without rashes pallor or icterus. Neuro without focal deficits. Myocarditisappears to be improving. Echo reassuring. Continue colchicine , Hold off on exercise for about 6 weeks. This appears to be resolving. Safe/stable for home. Following up in the office next week. Abdominal painmost likely viral enteritis from the same (presumably coxsackie) that is causing the myocarditis Pain is essentially resolved. Nausea improving. Doubt appendicitis, but it is almost impossible to disprove that it was not mild appendicitis that got better with antibiotics alone (even though I much more strongly suspect viral enteritis from the same coxsackie virus that is likely culprit for the myocarditis)but in the fact that that could not be disproven, and she was on Zosyn while here, will finish out a short course of antibiotics with Augmentin. Safe/stable for home. Again has office follow-up next week for this as well. Resident Activity Tracking Resident Involvement: Resident Care Provided Care Provided: Adult Hospital Medicine
[2025-03-01 11:34] VITALS: BP 114/66; TEMP 98.1
[2025-03-01 13:39] VITALS: PULSE 58
--- NOTE | 2025-03-01 14:12 | Billing Data ---
Date of Service March 01, 2025 Coding Level of Care Code 07855 IN/OBS DISCH 30 MIN/LESS
== END 2025-03-01 14:49 | disposition home or self-care (01) | DRG 316 ==
LOC: SUATTDRO → ED 01:42 → INTOOBSV 05:48 → EDINP 05:48 → SUATTDRO 05:48 → 2W 10:21